=== PATIENT | male | born 1950 | race Caucasian/White ===

== ENCOUNTER 2023-07-11 13:22 | Emergency (ER) | payer MEDICARE, BC, SELFPAY ==
[2023-07-11 13:30] VITALS: BP 165/70
--- NOTE | 2023-07-11 14:25 | ED.SKININJ ---
HPI-Injury
General
Chief Complaint: Skin Surface Trauma
Source: patient
Exam Limitations: none
Travel History
Have you had any contact with someone who has COVID-19?: No
Do you have any symptoms of coronavirus? Fever > 100 degrees, chills, cough, shortness of breath, sore throat, loss of taste or smell, muscle aches, or headache?: No
History of Present Illness-Injury
Initial Injury comments:
72-year-old male presents for evaluation of skin tear to the left mojica he sustained 2 days ago. He was seen at another facility and they cauterize some areas as he has been on Eliquis. They discharged him with Keflex but patient did not fill it.
He presents for evaluation of the wound currently. He notes pain. He denies a fever. He is not diabetic
Phy Exam
Physical Exam
Physical Exam:
General: Well-appearing male no acute respiratory distress
HEENT: Normocephalic atraumatic
Heart: Regular rate and rhythm no murmurs
Lungs: Clear to auscultation bilaterally no wheezing
Skin: Skin tear noted to left anterior distal mojica not currently bleeding. Base of the wound is with epithelialization tissue. Mild surrounding erythema slightly tender no fluctuance or drainage. No current bleeding
Course
Vital Signs
Initial and Last Documented VS:
Initial Vital Signs
Temp Pulse Resp BP Pulse Ox
98.0 F 70 18 165/70 97
07/11/23 13:30 07/11/23 13:30 07/11/23 13:30 07/11/23 13:30 07/11/23 13:30
Last Documented Vital Signs
Temp Pulse Resp BP Pulse Ox
98.0 F 70 18 165/70 97
07/11/23 13:30 07/11/23 13:30 07/11/23 13:30 07/11/23 13:30 07/11/23 13:30
MDM/Problems Addressed
Differential Diagnosis Includes:
Evaluation for skin tear that occurred 2 days ago. At this point, explained to the patient that there is no indication for sutures and would increase the chance of infection. No bleeding. There is slight erythema around the wound. Recommend that
he start the flex. Redressed the wound and will refer to wound care and follow-up
*Critical Care Note
Total Time (30-74mins, 75-104mins- exclusive of procedures): Not Applicable
ED Attending Note
-
Portions of this chart may have been created with voice recognition software.� Occasional wrong word or��sound alike� substitutions may have occurred due to the inherent limitations of voice recognition software.
Discharge Plan
Departure
Patient Disposition: Home (Routine Discharge)
Date of Disposition: 07/11/23
Time of Disposition: 14:26
Patient with high blood pressure during this ER visit?: No
Discharge Problem:
Skin tear
Instructions: Wound Care (DC)
Referrals:
[facility] [[facility]] -
Activity Restrictions/Additional Instructions:
Start your Keflex that was prescribed. Change dressing daily. Follow-up with wound care center. Return if needed.
Interventions
Interventions:
*Risk Screen - Suicide Last Done: 07/11/23 13:30
*General Assessment Last Done: 07/11/23 13:30
*Neglect/Abuse Screening Last Done: 07/11/23 13:30
*ED COVID-19 Vaccine History Last Done: 07/11/23 13:30
ED-Skin Assessment Last Done: 07/11/23 14:06
== END 2023-07-11 14:58 | disposition home or self-care (01) ==
LOC: EMR 13:22
PROVIDERS: EMERGENCY PHYSICIAN Emergency Medicine; FAMILY PHYSICIAN Internal Medicine
DX: S81.812A Laceration without foreign body, left lower leg, initial encounter (principal); X58.XXXA Exposure to other specified factors, initial encounter; Z79.01 Long term (current) use of anticoagulants
CPT/HCPCS: 99282

== ENCOUNTER → 2023-07-14 07:46 | Outpatient (REF) | payer MEDICARE, BC, SELFPAY | LOC: WOUND 07:46 | PROVIDERS: ATTENDING PHYSICIAN Surgery | DX: S81.812A Laceration without foreign body, left lower leg, initial encounter (principal); L97.822 Non-pressure chronic ulcer of other part of left lower leg with fat layer exposed; Z79.01 Long term (current) use of anticoagulants; I48.91 Unspecified atrial fibrillation; I10 Essential (primary) hypertension; X58.XXXA Exposure to other specified factors, initial encounter | CPT/HCPCS: 11042; 11045; 99203 ==

== ENCOUNTER → 2023-07-21 08:24 | Outpatient (REF) | payer MEDICARE, BC, SELFPAY | LOC: WOUND 08:24 | PROVIDERS: ATTENDING PHYSICIAN Surgery | DX: S81.812A Laceration without foreign body, left lower leg, initial encounter (principal); L97.822 Non-pressure chronic ulcer of other part of left lower leg with fat layer exposed; Z79.01 Long term (current) use of anticoagulants; I48.91 Unspecified atrial fibrillation; I10 Essential (primary) hypertension; X58.XXXA Exposure to other specified factors, initial encounter | CPT/HCPCS: 11042; 11045; 99203; 99213 ==

== ENCOUNTER → 2023-07-28 08:38 | Outpatient (REF) | payer MEDICARE, BC, SELFPAY | LOC: WOUND 08:38 | PROVIDERS: ATTENDING PHYSICIAN Surgery | DX: S81.812A Laceration without foreign body, left lower leg, initial encounter (principal); L97.822 Non-pressure chronic ulcer of other part of left lower leg with fat layer exposed; Z79.01 Long term (current) use of anticoagulants; I48.91 Unspecified atrial fibrillation; I10 Essential (primary) hypertension; X58.XXXA Exposure to other specified factors, initial encounter | CPT/HCPCS: 11042 ==

== ENCOUNTER → 2023-08-04 08:50 | Outpatient (REF) | payer MEDICARE, BC, SELFPAY | LOC: WOUND 08:50 | PROVIDERS: ATTENDING PHYSICIAN Surgery; FAMILY PHYSICIAN Internal Medicine | DX: S81.812A Laceration without foreign body, left lower leg, initial encounter (principal); L97.822 Non-pressure chronic ulcer of other part of left lower leg with fat layer exposed; Z79.01 Long term (current) use of anticoagulants; I48.91 Unspecified atrial fibrillation; I10 Essential (primary) hypertension; X58.XXXA Exposure to other specified factors, initial encounter | CPT/HCPCS: 11042 ==

== ENCOUNTER → 2023-08-11 09:30 | Outpatient (REF) | payer MEDICARE, BC, SELFPAY | LOC: WOUND 09:30 | PROVIDERS: ATTENDING PHYSICIAN Surgery; FAMILY PHYSICIAN Internal Medicine | DX: S81.812A Laceration without foreign body, left lower leg, initial encounter (principal); L97.822 Non-pressure chronic ulcer of other part of left lower leg with fat layer exposed; Z79.01 Long term (current) use of anticoagulants; I48.91 Unspecified atrial fibrillation; I10 Essential (primary) hypertension; W01.0XXA Fall on same level from slipping, tripping and stumbling without subsequent striking against object, initial encounter | CPT/HCPCS: 11042 ==

== ENCOUNTER → 2023-08-18 08:28 | Outpatient (REF) | payer MEDICARE, BC, SELFPAY | LOC: WOUND 08:28 | PROVIDERS: ATTENDING PHYSICIAN Surgery; FAMILY PHYSICIAN Internal Medicine | DX: S81.812A Laceration without foreign body, left lower leg, initial encounter (principal); L97.822 Non-pressure chronic ulcer of other part of left lower leg with fat layer exposed; I48.91 Unspecified atrial fibrillation; I10 Essential (primary) hypertension; Z79.01 Long term (current) use of anticoagulants; W19.XXXA Unspecified fall, initial encounter | CPT/HCPCS: 11042 ==

== ENCOUNTER → 2023-09-01 08:31 | Outpatient (REF) | payer MEDICARE, BC, SELFPAY | LOC: WOUND 08:31 | PROVIDERS: ATTENDING PHYSICIAN Surgery; FAMILY PHYSICIAN Internal Medicine | DX: L97.822 Non-pressure chronic ulcer of other part of left lower leg with fat layer exposed (principal); Z79.01 Long term (current) use of anticoagulants; S81.812A Laceration without foreign body, left lower leg, initial encounter; X58.XXXS Exposure to other specified factors, sequela; I48.91 Unspecified atrial fibrillation; I10 Essential (primary) hypertension | CPT/HCPCS: 99212 ==

== ENCOUNTER → 2024-01-01 16:51 | Outpatient (REF) | payer MEDICARE, BC, SELFPAY | LOC: HWRAD 16:51 | PROVIDERS: ATTENDING PHYSICIAN Physician Assistant; FAMILY PHYSICIAN Internal Medicine | DX: G89.29 Other chronic pain (principal); M25.551 Pain in right hip; M25.552 Pain in left hip; M25.561 Pain in right knee | CPT/HCPCS: 73523; 73564 ==

== ENCOUNTER 2024-03-28 15:26 | Emergency (ER) | payer MEDICARE, BC, SELFPAY ==
[2024-03-28 15:31] VITALS: BP 163/87
[2024-03-28] MEDS: TYLENOL 1000 MG PO (15:38)
--- NOTE | 2024-03-28 15:42 | EDRN ---
Pts states she gave pt one dose of ceftin this morning 'just in case'... does not have full ceftin rx to complete the therapy.
--- NOTE | 2024-03-28 16:26 | EDRN ---
Farooq EDGAR currently at the pts bedside
[2024-03-28 16:40] VITALS: BP 155/66; BMI 27.4
[2024-03-28 16:42] LABS: % Basophils 0.4 % (0-2); % Eosinophils 0.4 % (0-6); % Immature Granulocytes 0.2 % (0-0.5); % Lymphocytes 18.5 % (20.5-51.1); % Monocytes 15.5 % (1.7-9.3); Absolute Monocytes 0.8 10^3/uL (0.1-0.6); Absolute Neutrophils 3.4 10^3/uL (1.4-6.5); Hematocrit 33.5 % (39.0-52.0); Mean Corp Hgb Conc. 35.8 g/dL (33.0-37.0); Mean Corpuscular Hgb 29.3 pg (27.0-31.0); Mean Corpuscular Volume 81.7 fL (80.0-94.0); Mean Platelet Volume 10.1 fL (7.4-10.4); Nucleated Red Blood Cells % 0 % (-); Platelet Count 174 10^3/uL (130-400); Red Cell Dist. Width 13.3 % (11.5-14.5); White Blood Cell Count 5.2 10^3/uL (4.8-10.8)
[2024-03-28 16:46] LABS: COVID-19 Antigen Positive (Negative)
[2024-03-28 17:06] VITALS: BP 131/60
[2024-03-28 17:17] LABS: ALT (SGPT) 20 U/L (0-50); AST (SGOT) 24 U/L (17-59); Alkaline Phosphatase 65 U/L (38-126); Blood Urea Nitrogen 17 mg/dl (9-20); Calcium 9.4 mg/dl (8.4-10.2); Carbon Dioxide 21 mmol/L (22-30); Chloride 105 mmol/L (98-107); Estimated Creatinine Clearance 62 ml/min; Glucose 105 mg/dl (70-99); Potassium 3.7 mmol/L (3.5-5.1); Sodium 138 mmol/L (135-145); Total Bilirubin 0.6 mg/dl (0.2-1.3); Total Protein 6.6 g/dl (6.3-8.2); eGFR > 60.00
[2024-03-28] MEDS: NSS 250 IV (18:09)
[2024-03-28] MEDS: ZOFRAN 4 MG IV (18:09)
--- NOTE | 2024-03-28 18:52 | ED.GENMED ---
History of Present Illness
General
Chief Complaint: Fever
Source: patient and spouse
Exam Limitations: none
Time Seen by Provider: 03/28/24 16:13
Nursing documentation reviewed up to this point in time: agreed with
History of Present Illness
History of Present Illness:
73-year-old male past medical history of A-fib currently on Xarelto hypertension hyperlipidemia presenting to the emergency department today with concerns of bodyaches chills sore throat cough over the past 24 hours. Took Tylenol today. Denies any
chest pain shortness of breath.
Review of Systems
Review of Systems
Allergies reviewed?: Yes
All Other Systems: ROS reviewed and negative except as documented in HPI and ROS
Phy Exam
Physical Exam
Physical Exam:
GENERAL: Alert , in no apparent distress
EYE: pupils equal and reactive
NECK: Supple, no significant adenopathy.
ENT: Swollen boggy nasal turbinates, o/p clr, mmm.
CARDIAC: Regular rate and rhythm .
LUNGS: Clear breath sounds bilaterally, no acute respiratory distress, no wheezes/rales/rhonchi
ABDOMEN: Soft, without focal tenderness, no r/g, no cvat
NEUROLOGICAL: Alert and oriented, no focal neuro deficits
SKIN: Warm and dry, skin intact.
MUSCULOSKELETAL: No edema, well perfused.
PSYCH: Normal and appropriate interaction.
Course
Orders/Labs/Results
Orders:
Orders
03/28/24 15:36
Acetaminophen [Tylenol] 1,000 mg .ROUTE .STK-MED ONE
03/28/24 15:37
Acetaminophen [Tylenol] 1,000 mg PO NOW STA
03/28/24 15:39
EKG [Electrocardiogram (*1)] Urgent
Reason for Study: Tachycardia
EKG- Treatment ONCE
03/28/24 16:28
Chest [CR Chest - 2 Views ] Urgent
Comment:
Reason For Exam: cough fever
03/28/24 16:35
CBC/With Diff [Complete Blood Count/With Diff] Urgent
CMP [Comprehensive Metabolic Panel] Urgent
Influenza A+B Rapid Molecular Urgent
FAUSTO Source: Nasal Swab
Specimen Description:
03/28/24 16:36
COVID-19 Antigen Urgent
Source: Nasal Swab
03/28/24 17:45
Ondansetron Injectable [Zofran] 4 mg IV NOW STA
03/28/24 17:46
0.9% Sodium Chloride 250 ml [Nss] 250 ml IV BOLUS
Abnormal Lab Results
03/28/24 03/28/24
16:35 16:36
RBC 4.10 L 10^6/uL
(4.70-6.10)
Hgb 12.0 L g/dL
(13.0-18.0)
Hct 33.5 L %
(39.0-52.0)
Absolute Lymphs (auto) 1.0 L 10^3/uL
(1.2-3.4)
Absolute Monos (auto) 0.8 H 10^3/uL
(0.1-0.6)
Lymphocytes % 18.5 L %
(20.5-51.1)
Monocytes % 15.5 H %
(1.7-9.3)
Carbon Dioxide 21 L mmol/L
(22-30)
Glucose 105 H mg/dl
(70-99)
SARS-CoV-2 Antigen Positive A
(Negative)
03/28/24 16:35
03/28/24 16:35
Vital Signs
Initial and Last Documented VS:
Initial Vital Signs
Temp Pulse Resp BP Pulse Ox
102.1 F H 95 16 163/87 100
03/28/24 15:31 03/28/24 15:31 03/28/24 15:31 03/28/24 15:31 03/28/24 15:31
Last Documented Vital Signs
Temp Pulse Resp BP Pulse Ox
98.5 F 85 12 131/60 93
03/28/24 16:40 03/28/24 17:15 03/28/24 17:15 03/28/24 17:06 03/28/24 17:15
MDM/Problems Addressed
MDM/Problems Addressed:
73-year-old male presenting to the emergency department today with concerns of generalized weakness fatigue cough nasal congestion over the past 24 hours. Febrile upon arrival but improving after receiving Tylenol. Other vital signs normal.
Patient tested positive for COVID which does seem to explain symptoms well at this point. Otherwise labs unremarkable patient in no distress patient did have a chest x-ray with a small consolidation to the right side which is very unlikely
represent bacterial infection considering symptoms started 1 day ago and are explained by COVID well. We did not start antibiotics at this point. He was advised for close outpatient follow-up otherwise stable for outpatient management. Return
precautions given.
The prospect of prescribing Paxlovid was discussed with the patient. Patient had multiple medications that interacted with Paxlovid. After a risk-benefit analysis he opted to withhold from Paxlovid at this time.
*Critical Care Note
Total Time (30-74mins, 75-104mins- exclusive of procedures): Not Applicable
ED Attending Note
-
Portions of this chart may have been created with voice recognition software.� Occasional wrong word or��sound alike� substitutions may have occurred due to the inherent limitations of voice recognition software.
Discharge Plan
Departure
Patient Disposition: Home (Routine Discharge)
Date of Disposition: 03/28/24
Time of Disposition: 18:54
Patient with high blood pressure during this ER visit?: No
Condition: Good
Covid-19: Not Applicable
Discharge Problem:
COVID-19
Instructions: Coronavirus Home Quarantine
Prescriptions:
New
ondansetron 4 mg tablet,disintegrating
4 mg PO Q6H PRN (Reason: nausea and vomiting) Qty: 7 0RF
Referrals:
Francisco Javier Merritt MD [Family Provider] -
Activity Restrictions/Additional Instructions:
You came to the emergency department today with concerns of COVID. Here you have a reassuring assessment. Please stay hydrated symptomatic medications at home. Return to the emergency department for any worsening, new or concerning symptoms.
Interventions
Interventions:
*Risk Screen - Suicide Last Done: 03/28/24 15:31
*General Assessment Last Done: 03/28/24 16:40
*Neglect/Abuse Screening Last Done: 03/28/24 15:31
ED- Fall Risk Assessment Last Done: 03/28/24 16:40
*ED COVID-19 Vaccine History Last Done: 03/28/24 16:40
ED- Neurological Assessment Last Done: 03/28/24 16:40
ED-Skin Assessment Last Done: 03/28/24 16:40
Discharge Date and Time
Print Language: SYRIAC
[2024-03-28 19:51] VITALS: BP 127/65
== END 2024-03-28 19:52 | disposition home or self-care (01) ==
LOC: EMR 15:26
PROVIDERS: Physician Assistant; EMERGENCY PHYSICIAN Emergency Medicine; FAMILY PHYSICIAN Internal Medicine
DX: U07.1 COVID-19 (principal); I48.91 Unspecified atrial fibrillation; I10 Essential (primary) hypertension; E78.00 Pure hypercholesterolemia, unspecified; Z79.01 Long term (current) use of anticoagulants
CPT/HCPCS: 99283; 96374; 71046; 80053; 85025; 87502; 87811; 93005

== ENCOUNTER 2024-03-29 14:09 | Inpatient (IN) | payer MEDICARE, BC, SELFPAY ==
[2024-03-29] VITALS (11 sets, daily range): BP systolic 126–175; BP diastolic 54–92; BMI 33.5; BMI 33.0
[2024-03-29] MEDS: OFIRMEV 100 IV (13:10)
[2024-03-29] MEDS: NSS 500 IV (13:10)
[2024-03-29 13:13] LABS: % Basophils 0.2 % (0-2); % Immature Granulocytes 0.2 % (0-0.5); % Lymphocytes 21.6 % (20.5-51.1); % Monocytes 16.4 % (1.7-9.3); % Neutrophils 61.6 % (42.2-75.2); Absolute Lymphocytes 1.3 10^3/uL (1.2-3.4); Absolute Neutrophils 3.6 10^3/uL (1.4-6.5); Hematocrit 38.8 % (39.0-52.0); Hemoglobin 13.3 g/dL (13.0-18.0); Mean Corp Hgb Conc. 34.3 g/dL (33.0-37.0); Mean Corpuscular Hgb 29.9 pg (27.0-31.0); Mean Corpuscular Volume 87.2 fL (80.0-94.0); Mean Platelet Volume 10.5 fL (7.4-10.4); Nucleated Red Blood Cells % 0 % (-); Platelet Count 169 10^3/uL (130-400); Red Blood Cell Count 4.45 10^6/uL (4.70-6.10); Red Cell Dist. Width 13.4 % (11.5-14.5); White Blood Cell Count 5.8 10^3/uL (4.8-10.8)
[2024-03-29 13:28] LABS: ALT (SGPT) 27 U/L (0-50); AST (SGOT) 35 U/L (17-59); Albumin 4.4 g/dl (3.5-5.0); Alkaline Phosphatase 56 U/L (38-126); Blood Urea Nitrogen 16 mg/dl (9-20); Calcium 8.9 mg/dl (8.4-10.2); Carbon Dioxide 26 mmol/L (22-30); Chloride 99 mmol/L (98-107); Estimated Creatinine Clearance 65 ml/min; Glucose 126 mg/dl (70-99); Potassium 3.9 mmol/L (3.5-5.1); Sodium 139 mmol/L (135-145); Total Bilirubin 0.7 mg/dl (0.2-1.3); Total Protein 7.1 g/dl (6.3-8.2); eGFR > 60.00
--- NOTE | 2024-03-29 13:30 | ED.GENMED ---
History of Present Illness
General
Chief Complaint: Fever
Time Seen by Provider: 03/29/24 12:38
History of Present Illness
History of Present Illness:
73-year-old male presents to the emergency department for evaluation of generalized weakness and coughing. He was diagnosed with COVID-19 yesterday and was discharged. His labs and vital signs were normal yesterday during the ED visit. He was not
given antivirals yesterday however his primary care physician prescribed him molnupiravir and he has taken 1 dose thus far.
Review of Systems
Review of Systems
Allergies reviewed?: Yes
All Other Systems: ROS reviewed and negative except as documented in HPI and ROS
Phy Exam
Physical Exam
Physical Exam:
GEN: Well appearing, NAD, WDWN
HEENT: Oral mucosa moist, no scleral icterus
Cardiac: Regular rate
Lung: No respiratory distress, no tachypnea, lungs clear to auscultation
MSK: No gross deformity or injuries
Skin: Good color, no pallor or jaundice, no rashes
Neuro: AO x3, moves all extremities freely
Psych: Calm, cooperative
Sepsis
Sepsis Screening
Sepsis Assessment: Sepsis Ruled Out
Sepsis Screen
Sepsis Screen: Sepsis Ruled Out
Date: 03/29/24
Time: 15:52
Course
Orders/Labs/Results
Orders:
Orders
03/29/24 12:52
0.9% Sodium Chloride 500 ml [Nss] 500 ml IV BOLUS
Acetaminophen 1000MG/100Ml [Ofirmev] 1,000 mg in 100 ml IV ONCE
Acetaminophen IV Indication:: ED Narcotic Naive Pt-ONCE
03/29/24 13:00
Complete Blood Count/With Diff Urgent
Comprehensive Metabolic Panel Urgent
03/29/24 13:46
Admit/Transfer Patient As Directed
Co-Sign Provider:
Level of Care: Inpatient admission
Assign to:: Telemetry
Physician / Group: minh
Diagnosis: sepsis covid
Reason for Telemetry: Arrhythmia
Date to Stop Telemetry: 04/01/24
Time to Stop Telemetry: 11:00
Reason for Hospitalization: sepsis covid
Expected length of stay greater than two midnights?: Yes
ELOS- Estimated Length of Stay in days: 2
I certify the patient meets the requirements for IP care: Yes
Code Status As Directed
Resuscitation Status: Full Code
PRN Pain Medication Management As Directed
May give lesser potent ordered pain med per pt: Yes
preference::
Protocol:: Medication orders for pain may be administered in a
manner that supports deferring to patient preference
when the pt is:
- Requesting an ordered lesser potent pain medication.
Least to most potent pain medications are defined
as: acetaminophen < NSAID < tramadol < opioids
(morphine, oxycodone, hydromorphone).
- Requesting a lesser dose of the same medication IF
ORDERED.
- Requesting a less intrusive route of administration
if both routes are prescribed by the provider (PO <
IV).
03/30/24 08:00
Dexamethasone [Decadron] 6 mg PO DAILY
04/01/24 11:00
DC Protocol for Telemetry ONCE
Abnormal Lab Results
03/29/24
13:00
RBC 4.45 L 10^6/uL
(4.70-6.10)
Hct 38.8 L %
(39.0-52.0)
MPV 10.5 H fL
(7.4-10.4)
Absolute Monos (auto) 1.0 H 10^3/uL
(0.1-0.6)
Monocytes % 16.4 H %
(1.7-9.3)
Glucose 126 H mg/dl
(70-99)
03/29/24 13:00
03/29/24 13:00
Vital Signs
Initial and Last Documented VS:
Initial Vital Signs
Temp Pulse Resp BP
102.2 F H 93 18 165/92
03/29/24 12:02 03/29/24 12:02 03/29/24 12:02 03/29/24 12:02
Last Documented Vital Signs
Temp Pulse Resp BP Pulse Ox
102.8 F H 83 16 139/61 93
03/29/24 13:10 03/29/24 15:45 03/29/24 15:45 03/29/24 15:00 03/29/24 15:45
MDM/Problems Addressed
MDM/Problems Addressed:
Patient is hemodynamically stable however does have frequent bouts of narrow complex tachycardia that is likely paroxysmal atrial fibrillation. Labs are reassuring, do not see indication for repeat chest x-ray. He is quite deconditioned physically
and require admission as he is not safe to go home under the care of his .
*Critical Care Note
Total Time (30-74mins, 75-104mins- exclusive of procedures): Not Applicable
ED Attending Note
-
Portions of this chart may have been created with voice recognition software.� Occasional wrong word or��sound alike� substitutions may have occurred due to the inherent limitations of voice recognition software.
Discharge Plan
Departure
Patient Disposition: Admit
Date of Disposition: 03/29/24
Time of Disposition: 13:34
Admit to: Med/Surg
Presentation/result/management discussed w/ accepting MD/DO: Hospitalist
Discharge Problem:
COVID-19, Paroxysmal A-fib
Interventions
Interventions:
*Risk Screen - Suicide Last Done: 03/29/24 12:52
*General Assessment Last Done: 03/29/24 12:40
*Neglect/Abuse Screening Last Done: 03/29/24 12:44
ED- Fall Risk Assessment Last Done: 03/29/24 12:52
*ED COVID-19 Vaccine History Last Done: 03/29/24 12:43
ED- Neurological Assessment Last Done: 03/29/24 12:44
ED-Skin Assessment Last Done: 03/29/24 12:44
--- NOTE | 2024-03-29 13:49 | HPS.HSE ---
Family Physician
-
Family Physician: Francisco Javier Merritt
Chief Complaint
-
fever, cough
History of Present Illness
73-year-old male past medical history of paroxysmal atrial fibrillation on Eliquis, prostate cancer status post radiation on hormonal therapy, gout, presenting for generalized weakness and coughing shortness of breath, fevers, sore throat for the
past 2 to 3 days. Recently he traveled by flight with many sick people on the flight. He was diagnosed with COVID yesterday in the emergency room and was discharged. He was not given antivirals yesterday however primary care physician prescribed
him molnupiravir and he was taken 1 dose so far. He has nausea but denies vomiting or abdominal pain.
Patient is currently having frequent episodes of rapid A-fib/SVT that self terminate in a few seconds. He also had some PVCs. Patient's physicist solid state is Dr. Dillard at [facility] cardiology.
Medical History
Past Medical History
Past Medical History: Reports Other (paroxysmal atrial fibrillation on Eliquis, prostate cancer status post radiation on hormonal therapy, gout,)
Past Surgical History: Reports None
Social History
Tobacco: Non-smoker
Alcohol: Occasional
Drug: None
Family History
Family History: Not pertinent
Allergies / Home Medications
Allergies reflects when Allergies were last updated in [employer].
Home Medications with original date entered in [employer]
Allergy/Medication List:
Allergies
Allergy/AdvReac Type Severity Reaction Status Date / Time
No Known Allergies Allergy Verified 03/29/24 12:02
Review of Systems
-
History Source: Patient
A 12 point ROS was completed and negative except as noted: Yes
Constitutional: Reports See HPI
EENT: Reports See HPI
Respiratory: Reports See HPI
Cardiac: Reports No Symptoms
Abdomen/GI: Reports No Symptoms
: Reports No Symptoms
Musculoskeletal: Reports No Symptoms
Skin: Reports No Symptoms
Neurological: Reports No Symptoms
Endocrine: Reports No Symptoms
Hematologic/Lymphatic: Reports No Symptoms
Psych: Reports No Symptoms
Physical Exam
Vital Signs
Vital Signs
Temp Pulse Resp BP Pulse Ox
102.8 F H 91 12 175/69 94
03/29/24 13:10 03/29/24 13:01 03/29/24 13:01 03/29/24 13:01 03/29/24 13:01
Physical Exam
General: Well Developed, Well Nourished and No Apparent Distress
HEENT: NormoCephalic, Moist mucous membranes and Atraumatic
Respiratory: Clear
Cardiac: S1/S2 and Regular Rhythm; No Murmur or Rub
GI: Soft, Non Tender, Non Distended and Normal Bowel Sounds; No Organomegaly
Rectal: Deferred by Provider
Musculoskeletal: No Clubbing, No Cyanosis and No Edema
Skin: No Rash
Neuro: Nonfocal/grossly intact
Laboratory Results
-
03/29/24 13:00
03/29/24 13:00
Laboratory Results
Total Bilirubin 0.7 mg/dl (0.2-1.3) 03/29/24 13:00
AST 35 U/L (17-59) 03/29/24 13:00
ALT 27 U/L (0-50) 03/29/24 13:00
Alkaline Phosphatase 56 U/L (38-126) 03/29/24 13:00
Data Reviewed
-
Lab Data: Labs Reviewed by me
Old Records: Reviewed
Impression/Plan
-
IMPRESSION:
PLAN:
# Sepsis (fever, tachycardia ) secondary to COVID infection
-Temperature 102.8
-IV fluids
-Tylenol, ibuprofen
Chest x-ray yesterday showed small opacity projecting over the lateral right midlung which may be infectious/inflammatory
-Patient hypoxic low 90s on room air
-Discontinue molnupiravir and start dexamethasone 6 mg daily
# Nonsustained self terminating episodes of A-fib/SVT/PVCs secondary to COVID/fever
-Telemetry monitoring
-Controlled fever
Paroxysmal atrial fibrillation
-Chest x-ray shows sinus rhythm with PVCs
-Continue Eliquis
-Continue sotalol
Prostate cancer status post radiation
-On hormonal therapy
Gout
-Continue allopurinol
GERD
-Continue Pepcid
Full code
DVT prophylaxis�heparin
Regular diet
[2024-03-29] MEDS: NSS 1000 IV (17:14)
[2024-03-29] MEDS: TYLENOL 650 MG PO (17:54)
[2024-03-29] MEDS: LIPITOR 40 MG PO (21:02)
[2024-03-29] MEDS: FLOMAX 0.4 MG PO (21:02)
[2024-03-29] MEDS: BETAPACE 80 MG PO (21:03)
[2024-03-29] MEDS: ELIQUIS 5 MG PO (21:13)
[2024-03-29] MEDS: TORADOL 10 MG IV (21:17)
[2024-03-30] MEDS: TYLENOL 650 MG PO ×2 (03:12→09:06)
[2024-03-30 03:17] VITALS: BP 146/54
[2024-03-30 04:57] VITALS: BMI 33.0
[2024-03-30] MEDS: SYNTHROID 100 MCG PO (06:22)
[2024-03-30] MEDS: NSS 1000 IV ×2 (06:28→17:41)
[2024-03-30 07:05] VITALS: BP 146/63
[2024-03-30 08:07] LABS: Hematocrit 32.4 % (39.0-52.0); Hemoglobin 10.9 g/dL (13.0-18.0); Mean Corp Hgb Conc. 33.6 g/dL (33.0-37.0); Mean Corpuscular Hgb 28.3 pg (27.0-31.0); Mean Corpuscular Volume 84.2 fL (80.0-94.0); Mean Platelet Volume 11.2 fL (7.4-10.4); Platelet Count 152 10^3/uL (130-400); Red Blood Cell Count 3.85 10^6/uL (4.70-6.10); Red Cell Dist. Width 13.8 % (11.5-14.5); White Blood Cell Count 4.4 10^3/uL (4.8-10.8)
[2024-03-30 08:42] LABS: ALT (SGPT) 24 U/L (0-50); AST (SGOT) 31 U/L (17-59); Albumin 3.4 g/dl (3.5-5.0); Alkaline Phosphatase 49 U/L (38-126); Blood Urea Nitrogen 22 mg/dl (9-20); Calcium 8.2 mg/dl (8.4-10.2); Carbon Dioxide 24 mmol/L (22-30); Chloride 102 mmol/L (98-107); Estimated Creatinine Clearance 70 ml/min; Glucose 96 mg/dl (70-99); Potassium 3.7 mmol/L (3.5-5.1); Sodium 137 mmol/L (135-145); Total Bilirubin 0.6 mg/dl (0.2-1.3); Total Protein 5.8 g/dl (6.3-8.2); eGFR > 60.00
[2024-03-30 08:48] LABS: Procalcitonin < 0.05 ng/ml (0.0-0.25)
[2024-03-30] MEDS: FLOMAX 0.4 MG PO ×2 (09:06→20:45)
[2024-03-30] MEDS: LEXAPRO 5 MG PO (09:06)
[2024-03-30] MEDS: BETAPACE 80 MG PO ×2 (09:06→20:45)
[2024-03-30] MEDS: DECADRON 6 MG PO (09:06)
[2024-03-30] MEDS: ELIQUIS 5 MG PO ×2 (09:07→20:45)
[2024-03-30 09:17] LABS: Band Neutrophils 1 % (0-3); Eosinophils 1 % (0-6); Lymphocytes 33 % (20-51); Monocytes 20 % (2-9); Normal RBC Morphology Yes; Platelets Checked Yes; Segmented Neutrophils 45 % (42-75)
[2024-03-30 09:18] LABS: Total Cells Counted 100
--- NOTE | 2024-03-30 10:29 | W.PN.HOSP.TC ---
Today's Communication/Plan
-
Monitor vital signs
see plan
Follow fever curve
Continue with Decadron, Tylenol
Add cough medications
Assessment / Plan
Assessment / Plan
General: Well Developed, Well Nourished and No Apparent Distress
HEENT: NormoCephalic, Moist mucous membranes and Atraumatic
Respiratory: Clear
Cardiac: S1/S2 and Regular Rhythm; No Murmur or Rub
GI: Soft, Non Tender, Non Distended and Normal Bowel Sounds
Musculoskeletal: No Clubbing, No Cyanosis and No Edema
Skin: No Rash
Neuro: Nonfocal/grossly intact
Sepsis (fever, tachycardia ) secondary to COVID infection
covid + 03/28
Follow fever curve
-IV fluids
-Tylenol, ibuprofen
Chest x-ray yesterday showed small opacity projecting over the lateral right midlung which may be infectious/inflammatory. Pro-Evelio negative
-Patient hypoxic low 90s on room air
Patient does not want antiviral
cw decadron
add Mucinex, Tessalon Perles
Blood culture pending
# Nonsustained self terminating episodes of A-fib/SVT/PVCs secondary to COVID/fever
-Telemetry monitoring
-Controlled fever
Paroxysmal atrial fibrillation
-Chest x-ray shows sinus rhythm with PVCs
-Continue Eliquis
-Continue sotalol
Prostate cancer status post radiation
-On hormonal therapy
Gout
-Continue allopurinol
GERD
-Continue Pepcid
Full code
DVT prophylaxis�heparin
Anticipated Discharge: > 48 hours
Subjective/Interval History
-
Date of Service: March 30, 2024
Fever overnight
Objective Data
-
Labs:
Laboratory Results
03/30/24
05:32
WBC 4.4 L
Hgb 10.9 L
Hct 32.4 L
Plt Count 152
Sodium 137
Potassium 3.7
Chloride 102
Carbon Dioxide 24
BUN 22 H
Creatinine 1.1
Glucose 96
Calcium 8.2 L
Total Bilirubin 0.6
AST 31
ALT 24
Alkaline Phosphatase 49
Vital Signs:
Vital Signs
Temp Pulse Resp BP Pulse Ox
100.7 F H 66 16 146/63 95
03/30/24 07:05 03/30/24 09:06 03/30/24 07:05 03/30/24 09:06 03/30/24 07:05
I&O
03/29/24 03/30/24 03/31/24
06:59 06:59 06:59
Intake Total 1440 / 1440
Output Total 200 / 200
Balance 1240 / 1240
[2024-03-30] MEDS: MUCINEX 1200 MG PO ×2 (11:28→20:45)
[2024-03-30] MEDS: TESSALON PERLES 200 MG PO (11:30)
[2024-03-30 11:45] VITALS: BP 139/58
[2024-03-30 15:55] VITALS: BP 114/63
[2024-03-30] MEDS: LIPITOR 40 MG PO (17:42)
--- NOTE | 2024-03-30 17:44 | CM ---
Patient on covid restrictions. CM spoke with patient he lives with in a 2 story home about 14 steps to bedroom. Patient uses [facility] pharmacy has no VN use in the past and his PCP is Dr. Merritt. Patient stated his plan is home with no needs.
Plan; home with no needs.
[2024-03-30 19:37] VITALS: BP 132/63
[2024-03-30 23:06] VITALS: BP 156/65
[2024-03-31] VITALS (7 sets, daily range): BP systolic 119–156; BP diastolic 61–70; PULSE 62; O2SAT 97
[2024-03-31] MEDS: SYNTHROID 100 MCG PO (05:48)
[2024-03-31 07:46] LABS: % Lymphocytes 29.4 % (20.5-51.1); % Monocytes 12.8 % (1.7-9.3); % Neutrophils 57.8 % (42.2-75.2); Absolute Lymphocytes 1.3 10^3/uL (1.2-3.4); Absolute Monocytes 0.6 10^3/uL (0.1-0.6); Absolute Neutrophils 2.6 10^3/uL (1.4-6.5); Hematocrit 31.6 % (39.0-52.0); Hemoglobin 11.1 g/dL (13.0-18.0); Mean Corp Hgb Conc. 35.1 g/dL (33.0-37.0); Mean Corpuscular Hgb 29.9 pg (27.0-31.0); Mean Corpuscular Volume 85.2 fL (80.0-94.0); Mean Platelet Volume 11.1 fL (7.4-10.4); Nucleated Red Blood Cells % 0 % (-); Platelet Count 132 10^3/uL (130-400); Red Blood Cell Count 3.71 10^6/uL (4.70-6.10); Red Cell Dist. Width 13.4 % (11.5-14.5); White Blood Cell Count 4.5 10^3/uL (4.8-10.8)
[2024-03-31] MEDS: FLOMAX 0.4 MG PO ×2 (08:09→20:04)
[2024-03-31] MEDS: DECADRON 6 MG PO (08:09)
[2024-03-31] MEDS: LEXAPRO 5 MG PO (08:09)
[2024-03-31] MEDS: MUCINEX 1200 MG PO ×2 (08:10→20:04)
[2024-03-31] MEDS: BETAPACE 80 MG PO ×2 (08:10→20:04)
[2024-03-31] MEDS: ELIQUIS 5 MG PO ×2 (08:10→20:04)
[2024-03-31 08:46] LABS: ALT (SGPT) 22 U/L (0-50); AST (SGOT) 28 U/L (17-59); Albumin 3.4 g/dl (3.5-5.0); Alkaline Phosphatase 38 U/L (38-126); Blood Urea Nitrogen 23 mg/dl (9-20); Calcium 8.3 mg/dl (8.4-10.2); Carbon Dioxide 22 mmol/L (22-30); Chloride 107 mmol/L (98-107); Estimated Creatinine Clearance 97 ml/min; Glucose 114 mg/dl (70-99); Sodium 141 mmol/L (135-145); Total Bilirubin 0.5 mg/dl (0.2-1.3); Total Protein 5.8 g/dl (6.3-8.2); eGFR > 60.00
--- NOTE | 2024-03-31 10:26 | VNURNOTE ---
Home Health Liaison spoke with patients via phone to discuss [facility] nurse/therapy, visits, schedule and homebound status. Patients is agreeable and understands that visits at home will be 2-3 x per week to assess and teach medical management.
Provided with contact information. Patient is aware that [facility] will contact them for start of care in 1-2 days after discharge from .
[facility] referral completed in [facility].
--- NOTE | 2024-03-31 11:36 | CM ---
Patient seen at bedside with Ashlyn.
PT recommend HH - reviewed options with .
[facility] HH referral placed in [facility]. Liaison notified & reached out to .
tt Dr. Quintana for script for walker- PT aware
PLAN: home, with [facility] when medically stable.
to transport.
--- NOTE | 2024-03-31 11:41 | W.PN.HOSP.TC ---
Today's Communication/Plan
-
Monitor vital signs see plan
Continue with cough meds
Continue with Decadron
Follow fever curve
Assessment / Plan
Assessment / Plan
General: Well Developed, Well Nourished and No Apparent Distress
HEENT: NormoCephalic, Moist mucous membranes and Atraumatic
Respiratory: Clear
Cardiac: S1/S2 and Regular Rhythm; No Murmur or Rub
GI: Soft, Non Tender, Non Distended and Normal Bowel Sounds
Musculoskeletal: No Clubbing, No Cyanosis and No Edema
Skin: No Rash
Neuro: Nonfocal/grossly intact
Sepsis (fever, tachycardia ) secondary to COVID infection
covid + 03/28
Follow fever curve, improving
-IV fluids
-Tylenol, ibuprofen
Chest x-ray yesterday showed small opacity projecting over the lateral right midlung which may be infectious/inflammatory. Pro-Evelio negative
-Patient hypoxic low 90s on room air
Patient does not want antiviral
cw decadron
add Mucinex, Tessalon Perles
# Nonsustained self terminating episodes of A-fib/SVT/PVCs secondary to COVID/fever
-Telemetry monitoring
-Controlled fever
Paroxysmal atrial fibrillation
-Chest x-ray shows sinus rhythm with PVCs
-Continue Eliquis
-Continue sotalol
Prostate cancer status post radiation
-On hormonal therapy
Gout
-Continue allopurinol
GERD
-Continue Pepcid
Full code
DVT prophylaxis�eliquis
Anticipated Discharge: Within 24 hours
Subjective/Interval History
-
Date of Service: March 31, 2024
denies pain
Objective Data
-
Labs:
Laboratory Results
03/31/24
07:36
WBC 4.5 L
Hgb 11.1 L
Hct 31.6 L
Plt Count 132
Sodium 141
Potassium 4.0
Chloride 107
Carbon Dioxide 22
BUN 23 H
Creatinine 0.8
Glucose 114 H
Calcium 8.3 L
Total Bilirubin 0.5
AST 28
ALT 22
Alkaline Phosphatase 38
Vital Signs:
Vital Signs
Temp Pulse Resp BP Pulse Ox
98.0 F 49 18 141/67 95
03/31/24 07:15 03/31/24 07:15 03/31/24 07:15 03/31/24 08:10 03/31/24 07:15
I&O
03/30/24 03/31/24 04/01/24
06:59 06:59 06:59
Intake Total 1440 / 1440 720 / 720
Output Total 200 / 200 1325 / 1325
Balance 1240 / 1240 -605 / -605
[2024-03-31] MEDS: LIPITOR 40 MG PO (17:16)
[2024-03-31] MEDS: TESSALON PERLES 200 MG PO (17:22)
[2024-03-31] MEDS: MELATONIN 3 MG PO (22:12)
[2024-04-01] VITALS (7 sets, daily range): BP systolic 122–153; BP diastolic 53–73; PULSE 58; O2SAT 96
[2024-04-01] MEDS: SYNTHROID 100 MCG PO (05:34)
[2024-04-01 06:11] LABS: % Basophils 0.2 % (0-2); % Immature Granulocytes 0.3 % (0-0.5); % Lymphocytes 27.2 % (20.5-51.1); % Monocytes 8.4 % (1.7-9.3); % Neutrophils 63.9 % (42.2-75.2); Absolute Lymphocytes 1.6 10^3/uL (1.2-3.4); Absolute Monocytes 0.5 10^3/uL (0.1-0.6); Absolute Neutrophils 3.7 10^3/uL (1.4-6.5); Hematocrit 31.1 % (39.0-52.0); Hemoglobin 10.7 g/dL (13.0-18.0); Mean Corp Hgb Conc. 34.4 g/dL (33.0-37.0); Mean Corpuscular Hgb 28.7 pg (27.0-31.0); Mean Corpuscular Volume 83.4 fL (80.0-94.0); Mean Platelet Volume 11.3 fL (7.4-10.4); Nucleated Red Blood Cells % 0 % (-); Platelet Count 157 10^3/uL (130-400); Red Blood Cell Count 3.73 10^6/uL (4.70-6.10); Red Cell Dist. Width 13.2 % (11.5-14.5); White Blood Cell Count 5.8 10^3/uL (4.8-10.8)
[2024-04-01 06:28] LABS: ALT (SGPT) 20 U/L (0-50); AST (SGOT) 24 U/L (17-59); Albumin 3.3 g/dl (3.5-5.0); Alkaline Phosphatase 41 U/L (38-126); Blood Urea Nitrogen 20 mg/dl (9-20); Calcium 8.2 mg/dl (8.4-10.2); Carbon Dioxide 23 mmol/L (22-30); Chloride 109 mmol/L (98-107); Estimated Creatinine Clearance 86 ml/min; Glucose 102 mg/dl (70-99); Potassium 4.1 mmol/L (3.5-5.1); Sodium 143 mmol/L (135-145); Total Bilirubin 0.4 mg/dl (0.2-1.3); Total Protein 5.7 g/dl (6.3-8.2); eGFR > 60.00
--- NOTE | 2024-04-01 08:26 | VNURNOTE ---
[facility] liaison received call from spouse Ashlyn. She wanted to review [facility] again. Reinforced our services and that we are intermittent care starting at 2-3 visits/week. Spouse interested in setting up caregivers /companions. CG/Background Investigator
list provided via email to [email or web address].
[2024-04-01] MEDS: ELIQUIS 5 MG PO ×2 (09:19→20:50)
[2024-04-01] MEDS: DECADRON 6 MG PO (09:19)
[2024-04-01] MEDS: MUCINEX 1200 MG PO ×2 (09:20→20:51)
[2024-04-01] MEDS: LEXAPRO 5 MG PO (09:20)
[2024-04-01] MEDS: FLOMAX 0.4 MG PO ×2 (09:21→20:51)
[2024-04-01] MEDS: BETAPACE PO ×2 (09:30→20:49)
[2024-04-01] MEDS: TESSALON PERLES 200 MG PO (09:34)
[2024-04-01 10:26] LABS: Magnesium 1.9 mg/dl (1.6-2.3)
--- NOTE | 2024-04-01 11:05 | CM ---
Chart reviewed.
Received script for walker - placed in chart.
tt to PT.
Referral to [facility] in [facility]. Private aide list emailed to .
PLAN: Home with [facility]
to transport
--- NOTE | 2024-04-01 11:50 | W.PN.HOSP.TC ---
Today's Communication/Plan
-
monitor vitals
see plan
monitor bradycardia
EKG
Discussed with spouse at bedside
Continue with Decadron
Possible discharge tomorrow
Assessment / Plan
Assessment / Plan
General: Well Developed, Well Nourished and No Apparent Distress
HEENT: NormoCephalic, Moist mucous membranes and Atraumatic
Respiratory: Clear
Cardiac: S1/S2 and Regular Rhythm; No Murmur or Rub
GI: Soft, Non Tender, Non Distended and Normal Bowel Sounds
Musculoskeletal: No Clubbing, No Cyanosis and No Edema
Skin: No Rash
Neuro: Nonfocal/grossly intact
Sepsis (fever, tachycardia ) secondary to COVID infection
covid + 03/28
Follow fever curve, improving
-Tylenol, ibuprofen
Chest x-ray yesterday showed small opacity projecting over the lateral right midlung which may be infectious/inflammatory. Pro-Evelio negative
-Patient hypoxic low 90s on room air
Patient does not want antiviral
cw decadron
add Mucinex, Tessalon Perles
# Nonsustained self terminating episodes of A-fib/SVT/PVCs secondary to COVID/fever
-Telemetry monitoring
-Controlled fever
Some periods of bradycardia, EKG with sinus bradycardia. Monitor
Paroxysmal atrial fibrillation
-Chest x-ray shows sinus rhythm with PVCs
-Continue Eliquis
-Continue sotalol
Prostate cancer status post radiation
-On hormonal therapy
Gout
-Continue allopurinol
GERD
-Continue Pepcid
Full code
DVT prophylaxis�eliquis
Anticipated Discharge: Within 24 hours
Subjective/Interval History
-
Date of Service: April 01, 2024
denies pain
Objective Data
-
Labs:
Laboratory Results
04/01/24
05:05
WBC 5.8
Hgb 10.7 L
Hct 31.1 L
Plt Count 157
Sodium 143
Potassium 4.1
Chloride 109 H
Carbon Dioxide 23
BUN 20
Creatinine 0.9
Glucose 102 H
Calcium 8.2 L
Total Bilirubin 0.4
AST 24
ALT 20
Alkaline Phosphatase 41
Vital Signs:
Vital Signs
Temp Pulse Resp BP Pulse Ox
98.1 F 57 18 140/58 97
04/01/24 11:32 04/01/24 11:32 04/01/24 11:32 04/01/24 11:32 04/01/24 11:32
I&O
03/31/24 04/01/24 04/02/24
06:59 06:59 06:59
Intake Total 720 / 720 194 / 194
Output Total 1325 / 1325 200 / 200
Balance -605 / -605 1740 / 174
[2024-04-01] MEDS: LIPITOR 40 MG PO (18:34)
[2024-04-02 03:33] VITALS: BP 132/54
[2024-04-02] MEDS: SYNTHROID 100 MCG PO (05:12)
[2024-04-02 06:08] LABS: % Immature Granulocytes 0.6 % (0-0.5); % Lymphocytes 26.8 % (20.5-51.1); % Monocytes 8.2 % (1.7-9.3); % Neutrophils 64.4 % (42.2-75.2); Absolute Lymphocytes 1.7 10^3/uL (1.2-3.4); Absolute Monocytes 0.5 10^3/uL (0.1-0.6); Absolute Neutrophils 4.1 10^3/uL (1.4-6.5); Hematocrit 33.6 % (39.0-52.0); Hemoglobin 11.1 g/dL (13.0-18.0); Mean Corpuscular Hgb 28.9 pg (27.0-31.0); Mean Corpuscular Volume 87.5 fL (80.0-94.0); Mean Platelet Volume 11.3 fL (7.4-10.4); Nucleated Red Blood Cells % 0 % (-); Platelet Count 163 10^3/uL (130-400); Red Blood Cell Count 3.84 10^6/uL (4.70-6.10); Red Cell Dist. Width 13.2 % (11.5-14.5); White Blood Cell Count 6.4 10^3/uL (4.8-10.8)
[2024-04-02 06:28] LABS: ALT (SGPT) 21 U/L (0-50); AST (SGOT) 24 U/L (17-59); Albumin 3.5 g/dl (3.5-5.0); Alkaline Phosphatase 40 U/L (38-126); Blood Urea Nitrogen 22 mg/dl (9-20); Calcium 8.6 mg/dl (8.4-10.2); Carbon Dioxide 26 mmol/L (22-30); Chloride 107 mmol/L (98-107); Estimated Creatinine Clearance 86 ml/min; Glucose 106 mg/dl (70-99); Potassium 4.3 mmol/L (3.5-5.1); Sodium 143 mmol/L (135-145); Total Bilirubin 0.4 mg/dl (0.2-1.3); eGFR > 60.00
[2024-04-02 07:50] VITALS: BP 149/64
[2024-04-02] MEDS: ELIQUIS 5 MG PO (08:51)
[2024-04-02] MEDS: MUCINEX 1200 MG PO (08:51)
[2024-04-02] MEDS: BETAPACE PO (08:53)
[2024-04-02] MEDS: LEXAPRO 5 MG PO (08:54)
[2024-04-02] MEDS: DECADRON 6 MG PO (08:54)
[2024-04-02] MEDS: FLOMAX 0.4 MG PO (08:54)
[2024-04-02 11:23] VITALS: BP 167/70
--- NOTE | 2024-04-02 11:42 | W.PN.HOSP.TC ---
Addendum entered and electronically signed by Chris Quintana MD 04/02/24 11:59:
Hold sotalol for heart rate less than 55
Original Note:
Today's Communication/Plan
-
Monitor vital signs
see plan
Follow-up with cardiology
Hold sotalol for heart rate less than 60
Discussed with patient and spouse at bedside
Discharge today
Time of discharge 38 minutes
Assessment / Plan
Assessment / Plan
General: Well Developed, Well Nourished and No Apparent Distress
HEENT: NormoCephalic, Moist mucous membranes and Atraumatic
Respiratory: Clear
Cardiac: S1/S2 and Regular Rhythm; No Murmur or Rub
GI: Soft, Non Tender, Non Distended and Normal Bowel Sounds
Musculoskeletal: No Clubbing, No Cyanosis and No Edema
Skin: No Rash
Neuro: Nonfocal/grossly intact
Sepsis (fever, tachycardia ) secondary to COVID infection
covid + 03/28
Follow fever curve, improving
-Tylenol, ibuprofen
Chest x-ray yesterday showed small opacity projecting over the lateral right midlung which may be infectious/inflammatory. Pro-Evelio negative
On room air
Patient does not want antiviral
cw decadron
add Mucinex, Tessalon Perles
# Nonsustained self terminating episodes of A-fib/SVT/PVCs secondary to COVID/fever
-Telemetry monitoring
-Controlled fever
Some periods of bradycardia, EKG with sinus bradycardia. Monitor. Hold sotalol if heart rate less than 60. 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 He will be checking his heart rate at
home and will take sotalol if heart rate is high
Paroxysmal atrial fibrillation
-Chest x-ray shows sinus rhythm with PVCs
-Continue Eliquis
-on sotalol
Prostate cancer status post radiation
-On hormonal therapy
Gout
-Continue allopurinol
GERD
-Continue Pepcid
Full code
DVT prophylaxis�eliquis
Anticipated Discharge: Today
Subjective/Interval History
-
Date of Service: April 02, 2024
Denies lightheadedness, headache
Objective Data
-
Labs:
Laboratory Results
04/02/24
05:09
WBC 6.4
Hgb 11.1 L
Hct 33.6 L
Plt Count 163
Sodium 143
Potassium 4.3
Chloride 107
Carbon Dioxide 26
BUN 22 H
Creatinine 0.9
Glucose 106 H
Calcium 8.6
Total Bilirubin 0.4
AST 24
ALT 21
Alkaline Phosphatase 40
Vital Signs:
Vital Signs
Temp Pulse Resp BP Pulse Ox
98.1 F 55 20 167/70 98
04/02/24 11:23 04/02/24 11:23 04/02/24 11:23 04/02/24 11:23 04/02/24 11:23
I&O
04/01/24 04/02/24 04/03/24
06:59 06:59 06:59
Intake Total 1939 / 1939 480 / 480
Output Total 200 / 200
Balance 1740 / 1740 480 / 480
--- NOTE | 2024-04-02 11:58 | W.DCSUMMARY ---
Discharge Summary
Discharge Data
Date of Admission: 03/29/24
Date of Discharge: 04/02/24
-
Pending Results: No
Hospital Course
73-year-old male with past medical history of A-fib/SVT, prostate cancer s/p radiation, gout, GERD came to the hospital with sepsis secondary to COVID-19 infection. Patient was started on Decadron which improved his symptoms. Procalcitonin was
checked which was negative so he was not started on any antibiotics. His symptoms continue to improve over time. His hospital course was also complicated with intermittent bradycardia for which he was instructed to hold sotalol if heart rate less
than 55. He did not had any bradycardia symptoms including lightheadedness, dizziness. He was also instructed to follow-up closely with his hand ii blocker outpatient regarding his regimen. He did not require any oxygen throughout hospitalization.
Once his symptoms continue to improve, he was then discharged home with instructions to follow-up with all his physicians outpatient.
Discharge Plan
-
Patient Disposition: Home with Home Care
Discharge Diagnosis/Procedures: Sepsis secondary to COVID-19 infection
Paroxysmal atrial fibrillation with periods of bradycardia
Diet: As tolerated
Activity: As tolerated
Driving Restrictions: As prior to admission
Bathing Restrictions: None
Activity Restrictions/Additional Instructions:
Please follow-up with your hand ii blocker outpatient
Check heart rate at home
Instructions: Bradycardia
Referrals:
Francisco Javier Merritt MD [Family Provider] - in less than 1 week
Prescriptions:
New
dexamethasone 6 mg tablet
6 mg PO DAILY Qty: 7 0RF
guaifenesin 600 mg Tablet Extended Release 12hr
1,200 mg PO Q12 Qty: 28 0RF
benzonatate 100 mg Capsule
200 mg PO TIDPRN PRN (Reason: cough) Qty: 14 0RF
Continued
atorvastatin [Lipitor] 40 mg Tablet
40 mg PO QPM
acetaminophen [Tylenol] 325 mg Tablet
650 mg PO Q4HPRN PRN (Reason: mild pain)
allopurinol 100 mg Tablet
100 mg PO DAILY
levothyroxine [Synthroid] 100 mcg Tablet
100 mcg PO DAILY
famotidine [Pepcid] 20 mg Tablet
20 mg PO DAILYPRN PRN (Reason: GERD )
tamsulosin [Flomax] 0.4 mg Capsule
0.4 mg PO BID
ergocalciferol (vitamin D2) 1,250 mcg (50,000 unit) Capsule
1,250 mcg PO FR
Eligard (4 month) 30 mg Syringe
30 mg SC [id number]
escitalopram oxalate [Lexapro] 5 mg Tablet
5 mg PO DAILY
[id number] 30-10-200 mg Capsule
1 cap PO BIDPRN PRN (Reason: cough)
Eliquis 5 mg Tablet
5 mg PO BID
Held
sotalol 80 mg Tablet
80 mg PO BID
Hold Instructions: if HR<60
Discharge Orders:
Discharge Patient (As Directed); Ordered 04/02/24
Ordered By: Chris Quintana
Discharge Date and Time
Discharge Date/Time: 04/02/24 15:02
Print Language: FINNISH
--- NOTE | 2024-04-02 12:15 | CM ---
Patient seen at bedside.
IMM explained & signed. In chart.
Marilyn liaison [facility] notified of discharge today
PLAN: Home with [facility]
to transport
[2024-04-02 12:44] VITALS: BP 150/58
[2024-04-02 12:45] VITALS: BP 152/60
== END 2024-04-02 15:02 | disposition home health service (06) | DRG 871 ==
LOC: 2 NORTH 14:09
PROVIDERS: Physician Assistant; ADMITTING PHYSICIAN Hospitalist; ATTENDING PHYSICIAN Internal Medicine; EMERGENCY PHYSICIAN Emergency Medicine; FAMILY PHYSICIAN Internal Medicine
DX: A41.89 Other specified sepsis (principal); U07.1 COVID-19; I47.19 Other supraventricular tachycardia; I49.3 Ventricular premature depolarization; I48.0 Paroxysmal atrial fibrillation; K21.9 Gastro-esophageal reflux disease without esophagitis; M10.9 Gout, unspecified; R09.02 Hypoxemia; Z79.01 Long term (current) use of anticoagulants; Z79.899 Other long term (current) drug therapy; Z79.890 Hormone replacement therapy; Z85.46 Personal history of malignant neoplasm of prostate; Z92.3 Personal history of irradiation
CPT/HCPCS: 71046; 80053; 83735; 84145; 85025; 87502; 87811; 93005; 96374; 97116; 97163; 97166; 97530; 99285

== ENCOUNTER → 2024-04-16 08:30 | Outpatient (REF) | payer MEDICARE, BC, SELFPAY | LOC: HWRAD 08:30 | PROVIDERS: ATTENDING PHYSICIAN Internal Medicine | DX: R93.89 Abnormal findings on diagnostic imaging of other specified body structures (principal) | CPT/HCPCS: 71046 ==